=== PATIENT | female | born 1975 | race Caucasian/White ===

== ENCOUNTER 2024-12-02 15:38 | Emergency (ER) | payer SELFPAY ==
[2024-12-02 16:33] LABS: Pregnancy Test - Urine (BHCG) Negative (Negative); Pregu Control Background? CLEAR/WHITE (CLR/WHITE); Pregu Control Bar Appear? YES (CONTROL BAR)
[2024-12-02 16:34] LABS: CAUTI Indications for Culture Pelvic or flank pain; Glucose, Urine (Dipstick) Normal (Negative); Leukocyte 250 Leu/uL (Negative); Protein, Urine (Dipstick) Negative (Neg-Trace); RBC/HPF 0-3 HPF (0-3); Specific Gravity, Urine 1.018 (1.002-1.036)
[2024-12-02 16:35] LABS: Bacteria/HPF 1+ HPF (None Seen)
[2024-12-02 16:36] LABS: Urine Culture Reflex No No
[2024-12-02] MEDS ORDERED: Acetaminophen 500 MG TAB ONE (17:10)
[2024-12-02 18:04] LABS: #Basophils 0.04 10x3/uL (0.0-0.2); #Eosinophils 0.30 10x3/uL (0.0-0.7); #Monocytes 0.62 10x3/uL (0.11-0.59); #Neutrophils 5.51 10x3/uL (1.40-6.50); %Basophils 0.4 % (0.0-1.0); %Eosinophils 3.0 % (0.0-10.0); %Lymphocytes 34.7 % (21.0-51.0); %Monocytes 6.3 % (0.0-10.0); %Neutrophils 55.5 % (42.0-75.0); Hematocrit 44.3 % (36.0-47.0); Hemoglobin 14.4 g/dL (12.0-16.0); Mean Corpuscular Hemoglobin 30.8 pg (27.0-31.0); Mean Corpuscular Volume 94.9 fL (78.0-98.0); Platelet Count 259 10x3/uL (130-400); Red Blood Cell (RBC) Count 4.67 mill/uL (4.20-5.40); White Blood Cell (WBC) Count 9.92 10x3/uL (4.8-10.8)
[2024-12-02 18:27] LABS: ALT (SGPT) 20 U/L (Less than 34); AST (SGOT) 26 U/L (11-34); Albumin 4.1 g/dL (3.1-4.5); Alkaline Phosphatase 91 U/L (40-110); Anion Gap 14 mmol/L (10-20); BUN (Urea Nitrogen) 14 mg/dL (7.0-18.7); Bilirubin, Total 0.4 mg/dL (0.3-1.2); Calc. Creatinine Clearance 0 mL/min (70-130); Calcium 9.1 mg/dL (7.8-10.44); Carbon Dioxide 23 mmol/L (22-29); Chloride 108 mmol/L (98-107); Globulin 3.0 g/dL (2.4-3.5); Glucose 79 mg/dL (70-105); Potassium 4.1 mmol/L (3.5-5.1); Sodium 141 mmol/L (136-145)
[2024-12-03 01:21] LABS: Chlam.trachomatis by PCR,Urine Not Detected (NotDetected); GC N.gonorrhoeae PCR,UrineVOID Not Detected (NotDetected)
== END 2024-12-02 18:56 ==
LOC: ERS 15:38
DX: D25.9 Leiomyoma of uterus, unspecified (principal); I10 Essential (primary) hypertension
CPT/HCPCS: 76856; 80053; 81001; 81025; 84702; 85025; 86850; 86900; 86901; 87491; 87591